=== PATIENT | male | born 1980 | race African-American/Black ===

== ENCOUNTER 2020-06-23 06:52 | Emergency (ER) | payer BC ==
[~2020-06-23] VITALS: Ht 175.3 cm; Wt 81.8 kg
[2020-06-23 07:49] LABS: BASO % 0.7 % (0.0-1.0); EOS # 0.2 10^3/uL (0.0-0.5); EOS % 3.8 % (0.0-3.0); HEMATOCRIT 42.2 % (42.0-52.0); HEMOGLOBIN 13.9 g/dl (13.5-17.5); LYMPH # 1.9 10^3/uL (1.5-5.0); LYMPH % 32.8 % (24.0-44.0); MEAN CORPUSCULAR HEMOGLOBIN 29.8 pg (27.0-33.0); MEAN CORPUSCULAR HGB CONC 32.9 g/dl (32.0-36.5); MEAN CORPUSCULAR VOLUME 90.4 fl (80.0-96.0); MONO # 0.6 10^3/uL (0.0-0.8); MONO % 9.9 % (0.0-5.0); NEUTROPHILS # 3.1 10^3/uL (1.5-8.5); NEUTROPHILS % 52.5 % (36.0-66.0); PLATELET COUNT, AUTOMATED 207 10^3/uL (150-450); RED BLOOD COUNT 4.67 10^6/uL (4.30-6.10); WHITE BLOOD COUNT 5.9 10^3/uL (4.0-10.0)
[2020-06-23 08:17] LABS: ALBUMIN 3.9 GM/DL (3.2-5.2); ALT/SGPT 14 U/L (12-78); BILIRUBIN,DIRECT 0.1 MG/DL (0.0-0.2); BILIRUBIN,TOTAL 0.4 MG/DL (0.2-1.0); C REACTIVE PROTEIN QUANTITATIV 0.33 MG/DL (0.00-0.30); CK-MB VALUE MASS < 1.0 NG/ML (<3.6); CPK CREATINE PHOSPHOKINASE 127 U/L (39-308); LIPASE 1036 U/L (73-393); MB/CK RELATIVE INDEX 0.79 (< OR =4); TOTAL PROTEIN 7.2 GM/DL (6.4-8.2); TROPONIN I < 0.02 NG/ML (< 0.10)
--- NOTE | 2020-06-23 08:18 | REPVR ---
PROCEDURE INFORMATION: Exam: XR Left Ribs with PA Chest, 3 Views Exam date and time: 06/23/2020 7:15 AM Age: 40 years old Clinical indication: Painful respiration; Additional info: Pain TECHNIQUE: Imaging protocol: XR Left ribs 3 views with PA chest. COMPARISON: No relevant prior studies available. FINDINGS: Lungs: Unremarkable. No consolidation. Pleural space: Unremarkable. No pleural effusion. No pneumothorax. Heart/Mediastinum: Unremarkable. No cardiomegaly. Bones/joints: No acute fracture of the visualized skeleton, including the left ribs, is identified. No focal lytic or blastic lesion is identified. IMPRESSION: 1. No evidence for acute pulmonary disease. 2. No left rib fracture or lesion identified. Electronically signed by: Rasheed Kirby On 06/23/2020 08:18:52 AM
[2020-06-23 08:50] LABS: ERYTHROCYTE SEDIMENTATION RATE 2 mm/hr (0-15)
[2020-06-23 10:09] VITALS: BP 137/80
--- NOTE | 2020-06-25 11:32 | ECGEPIP ---
[facility] - ED Test Date: 2020-06-23 Pat Name: GREG MCCARTY Department: Room: - Gender: Male Network Support Analyst: paola : 1980 Requested By: JOJO Martin Order Number: [id number] Reading MD: Bertrand Coleman Measurements Intervals [place] Rate: 58 P: 44 VT: 162 QRS: 48 QRSD: 102 T: 30 QT: 395 QTc: 389 Interpretive Statements SINUS BRADYCARDIA NSTTW ABNORMALITIES NO PRIORS FOR COMPARISON Electronically Signed on 06-25-2020 11:32:25 EDT by Bertrand Coleman
== END 2020-06-23 10:16 | disposition home or self-care (01) ==
LOC: M ED 06:52
DX: K85.90 Acute pancreatitis without necrosis or infection, unspecified (principal)